=== PATIENT | male | born 1955 | race Caucasian/White ===

== ENCOUNTER → 2020-07-29 | Outpatient (REF) | payer BC | LOC: M LAB REF 17:32 | PROVIDERS: ATTEND Physician Assistant | DX: L30.9 Dermatitis, unspecified (principal) ==

== ENCOUNTER → 2023-08-08 | Outpatient (REF) | payer MEDICARE, BC | LOC: M SMT PRO 15:40 | PROVIDERS: ATTEND Urology | DX: C61 Malignant neoplasm of prostate (principal) ==

== ENCOUNTER → 2023-08-23 | Outpatient (CLI) | payer MEDICARE, BC | LOC: M WUC 08:05 | PROVIDERS: ATTEND Family Medicine | DX: Z01.818 Encounter for other preprocedural examination (principal); Z85.46 Personal history of malignant neoplasm of prostate ==

== ENCOUNTER 2023-09-12 10:41 | Inpatient (IN) | payer MEDICARE ==
[~2023-09-12] VITALS: Ht 177.8 cm; Wt 77.6 kg
[~2023-09-12 10:41] MED LIST: BYST5TAB2 PO; CHLO25TA PO; MAGN400T2 PO; TELM1TAB37 PO; VITA500C24 PO; VITATAB73 PO; ceFAZolin SOD 2 GM in IV 1 EA IV ONE
[2023-09-12] MEDS ORDERED: LR 1,000 ML IV SCH (11:20)
[2023-09-12] MEDS ORDERED: LIDOCAINE 2% 100MG/5ML SDV (FOR ANES.) As Ordered ONE (13:48)
[2023-09-12] MEDS ORDERED: propofoL 200 MG/20 ML VIAL As Ordered ONE (13:48)
[2023-09-12] MEDS ORDERED: SUGAMMADEX SODIUM 500 MG/5 ML VIAL (BRIDION) As Ordered ONE (13:48)
[2023-09-12] MEDS ORDERED: KETOROLAC 60MG 2ML VIAL As Ordered ONE (13:48)
[2023-09-12] MEDS ORDERED: fentaNYL 100 MCG/2 ML INJECTION As Ordered ONE (13:48)
[2023-09-12] MEDS ORDERED: MIDAZOLAM INJ 2MG/2ML VIAL As Ordered ONE (13:48)
[2023-09-12] MEDS ORDERED: ROCURONIUM BROMIDE 50MG/5ML VIAL As Ordered ONE ×3 (13:48→17:58)
[2023-09-12] MEDS ORDERED: ONDANSETRON 4MG 2ML VIAL As Ordered ONE (13:48)
[2023-09-12] MEDS ORDERED: LIDOCAINE 1% SDV 30ML VIAL As Ordered ONE (14:43)
[2023-09-12] MEDS ORDERED: NS 1,000 ML IV SCH (15:05)
[2023-09-12] MEDS ORDERED: ACETAMINOPHEN TAB 650MG DOSE (2X325MG) PO PRN (15:05)
[2023-09-12] MEDS ORDERED: ONDANSETRON 4MG 2ML VIAL IV PRN ×2 (15:05→19:10)
[2023-09-12] MEDS ORDERED: PERCOCET 5MG/325MG TAB PO PRN (15:05)
[2023-09-12] MEDS ORDERED: ceFAZolin 2 GM/D5W 50 ML IV BAG As Ordered ONE (15:11)
[2023-09-12] MEDS ORDERED: HEPARIN SOD (PORCINE) 5000UNITS/ML 1ML VIAL/SYRINGE As Ordered ONE (15:12)
[2023-09-12] MEDS ORDERED: KETAMINE HCL 200MG/20ML VIAL As Ordered ONE (15:33)
[2023-09-12] MEDS ORDERED: ACETAMINOPHEN 1000MG 100ML IV BAG As Ordered ONE (15:33)
[2023-09-12] MEDS ORDERED: HYDROmorphone HCL 2MG/ML 1ML VIAL As Ordered ONE ×2 (15:43→18:57)
[2023-09-12] MEDS ORDERED: MORPHINE 2 MG/ML 1ML VIAL IV PRN (19:10)
[2023-09-12] MEDS ORDERED: oxyCODONE 5MG TAB PO PRN (19:10)
[2023-09-12] MEDS ORDERED: fentaNYL 100 MCG/2 ML INJECTION IV PRN (19:10)
[2023-09-12 20:16] LABS: HEMATOCRIT 38.4 % (42.0-52.0); HEMOGLOBIN 13.8 g/dl (13.5-17.5); MEAN CORPUSCULAR HEMOGLOBIN 33.1 pg (27.0-33.0); MEAN CORPUSCULAR HGB CONC 35.9 g/dl (32.0-36.5); MEAN CORPUSCULAR VOLUME 92.1 fl (80.0-96.0); PLATELET COUNT, AUTOMATED 340 10^3/uL (150-450); RED BLOOD COUNT 4.17 10^6/uL (4.30-6.10); WHITE BLOOD COUNT 14.5 10^3/uL (4.0-10.0)
[2023-09-12 20:38] LABS: BLOOD UREA NITROGEN 13 MG/DL (9-23); CALCIUM LEVEL 8.6 MG/DL (8.3-10.6); CARBON DIOXIDE LEVEL 26 MMOL/L (20-31); CHLORIDE LEVEL 102 MMOL/L (98-107); CREATININE FOR GFR 0.76 MG/DL (0.70-1.30); GLOMERULAR FILTRATION RATE > 60.0 (>49); GLUCOSE, FASTING 145 MG/DL (74-106); POTASSIUM SERUM 3.8 MMOL/L (3.5-5.1); SODIUM LEVEL 135 MMOL/L (136-145)
[2023-09-12] MEDS: DOCUSATE SODIUM 100MG CAPSULE PO SCH (21:00)
[2023-09-12 21:15] VITALS: BP 158/92; TEMP 97.8; O2SAT 97
[2023-09-12 21:45] VITALS: BP 148/96; TEMP 97.9; O2SAT 97
[2023-09-12 22:55] VITALS: BP 136/86; TEMP 98; O2SAT 95
[2023-09-12] MEDS: ceFAZolin SOD 1 GM in D5W MINI-BAG PLUS 50 ML IV SCH (23:25)
[2023-09-12 23:55] VITALS: BP 133/87; TEMP 98.6; O2SAT 94
[2023-09-13 00:55] VITALS: BP 133/87; TEMP 98.5; O2SAT 95
[2023-09-13 01:56] VITALS: BP 134/88; TEMP 98; O2SAT 95
[2023-09-13 06:01] LABS: HEMATOCRIT 36.5 % (42.0-52.0); HEMOGLOBIN 13.1 g/dl (13.5-17.5); MEAN CORPUSCULAR HEMOGLOBIN 32.8 pg (27.0-33.0); MEAN CORPUSCULAR HGB CONC 35.9 g/dl (32.0-36.5); MEAN CORPUSCULAR VOLUME 91.5 fl (80.0-96.0); PLATELET COUNT, AUTOMATED 324 10^3/uL (150-450); RED BLOOD COUNT 3.99 10^6/uL (4.30-6.10); WHITE BLOOD COUNT 12.9 10^3/uL (4.0-10.0)
[2023-09-13] MEDS: HEPARIN SOD (PORCINE) 5000UNITS/ML 1ML VIAL/SYRINGE SC SCH ×2 (06:04→14:00)
[2023-09-13] MEDS: PERCOCET 5MG/325MG TAB PO PRN ×3 (06:05→16:20)
[2023-09-13 06:23] LABS: BLOOD UREA NITROGEN 12 MG/DL (9-23); CALCIUM LEVEL 8.9 MG/DL (8.3-10.6); CARBON DIOXIDE LEVEL 27 MMOL/L (20-31); CHLORIDE LEVEL 99 MMOL/L (98-107); CREATININE FOR GFR 0.62 MG/DL (0.70-1.30); GLOMERULAR FILTRATION RATE > 60.0 (>49); GLUCOSE, FASTING 159 MG/DL (74-106); POTASSIUM SERUM 3.8 MMOL/L (3.5-5.1); SODIUM LEVEL 134 MMOL/L (136-145)
[2023-09-13 06:39] VITALS: BP 152/89; TEMP 98.1; O2SAT 96
[2023-09-13] MEDS: ceFAZolin SOD 1 GM in D5W MINI-BAG PLUS 50 ML IV SCH (07:00)
[2023-09-13] MEDS ORDERED: NEBIVOLOL 5 MG TAB (BYSTOLIC) PO SCH (09:00)
[2023-09-13] MEDS ORDERED: TELMISARTAN 20 MG TAB PO SCH (09:00)
[2023-09-13] MEDS ORDERED: CHLORTHALIDONE 25 MG TAB PO SCH (09:00)
[2023-09-13 09:15] VITALS: BP 160/91
[2023-09-13] MEDS: DOCUSATE SODIUM 100MG CAPSULE PO SCH (09:16)
[2023-09-13 09:45] VITALS: BP 160/92; TEMP 98.1; O2SAT 97
[2023-09-13 14:09] VITALS: BP 169/97; TEMP 98.1; O2SAT 95
[2023-09-13] MEDS ORDERED: PERCOCET PO (15:34)
[2023-09-13] MEDS ORDERED: CIPR-249 PO (15:34)
== END 2023-09-13 17:40 | disposition home or self-care (01) | DRG 708 ==
LOC: M OR 10:41 → ENRESERV 19:28 → M MS5PR 21:40
PROVIDERS: ADMIT Urology; ATTEND Urology
PROC: 07BC4ZX Excision of Pelvis Lymphatic, Percutaneous Endoscopic Approach, Diagnostic (ICD-10-PCS; 2023-09-12)
PROC: 8E0W4CZ Robotic Assisted Procedure of Trunk Region, Percutaneous Endoscopic Approach (ICD-10-PCS; 2023-09-12)
PROC: 0VT04ZZ Resection of Prostate, Percutaneous Endoscopic Approach (ICD-10-PCS; principal; 2023-09-12 12:30)
DX: C61 Malignant neoplasm of prostate (principal); I10 Essential (primary) hypertension; Z79.899 Other long term (current) drug therapy